=== PATIENT | male | born 1940 | race Caucasian/White ===

== ENCOUNTER 2017-11-26 15:42 | Inpatient (IN) | payer OTHER ==
[2017-11-26] MEDS ORDERED: ASPIRIN 81 MG CHEWABLE TAB PO ONE (16:05)
[2017-11-26 16:10] LABS: PLATELET COUNT 262 10^3/uL (150-400)
--- NOTE | 2017-11-26 16:24 | CPEKG ---
Heart Rate: 87 RR Interval: 690 P-R Interval: 236 QRSD Interval: 92 QT Interval: 384 QTC Interval: 462 P [place]: 56 QRS [place]: -42 T Wave [place]: 90 EKG Severity - ABNORMAL ECG - EKG Impression: SINUS RHYTHM EKG Impression: FIRST DEGREE AV BLOCK EKG Impression: INFERIOR INFARCT, AGE INDETERMINATE EKG Impression: LATERAL LEADS ARE ALSO INVOLVED Electronically Signed By: Maribell Us 26-Nov-2017 21:01:26
--- NOTE | 2017-11-26 16:53 | EDPHY ---
H & P Stated Complaint: cp, elevated trop Time Seen by Provider: 11/26/17 16:05 HPI/ROS: CHIEF COMPLAINT: Abnormal troponin HISTORY OF PRESENT ILLNESS: This is a 77-year-old male who was advised to come to the emergency department by his physician after he was discovered to have an elevated troponin, 0.293. He saw his physician on November 21, concerned about worsening chest pain with exertion. He has been experiencing some chest tightness for the past few months when walking his dog and this has recently gotten worse. He has continued to feel some fatigue and chest pain with exertion over the past week. He had 1 episode 3 nights ago when he felt diaphoretic and lightheaded. This has not recurred. He is not currently experiencing chest pain or shortness of breath. He takes Eliquis for what he tells me are PVCs, but there is a question of paroxysmal atrial fibrillation. REVIEW OF SYSTEMS: A ten point review of systems was performed and is negative with the exception of the items mentioned in the HPI. Past medical history: 1. 4 cm ascending aortic aneurysm 2. Anxiety 3. Hypothyroidism Past surgical history: 1. Hernia repair 2. Right shoulder rotator cuff repair next 3. Right knee arthroscopy 4. Cervical diskectomy next 5. Right eye cataract repair 5. Bunionectomy Family history: Son with hypertrophic cardiomyopathy who underwent cardiac transplant. Social history: He lives with his , who has Alzheimer's. He does not use tobacco or alcohol. His son accompanies him tonight. His son is a director cost in [place]. General Appearance: Alert. Vital signs reviewed. Blood pressure 178/92 at triage. Eyes: Pupils equal and round, no conjunctival injection, no discharge. Anicteric. ENT, Mouth: Mucous membranes are moist, no oropharyngeal erythema or edema. Neck: No lymphadenopathy, supple. No JVD. Respiratory: Lungs are clear to auscultation; no wheezes, rales, or rhonchi. Cardiovascular: Regular rate and rhythm; no murmur, rub, or gallop. Gastrointestinal: Abdomen is soft and nontender, no masses or organomegaly, bowel sounds normal. Skin: Warm and dry, no rashes on exposed skin, normal color. Back: Nontender to palpation over the thoracolumbar spine. No CVAT. Extremities: No lower extremity edema, no calf tenderness or swelling. Neurological: Alert and oriented. Moving all four extremities easily and equally. Psychiatric: Normal affect. - Personal History Current Tetanus/Diphtheria Vaccine: Yes Current Tetanus Diphtheria and Acellular Pertussis (TDAP): Yes Tetanus Vaccine Date: < 10 YEARS - Medical/Surgical History Hx Asthma: No Hx Chronic Respiratory Disease: No Hx Diabetes: No Hx Cardiac Disease: Yes Hx Renal Disease: No Hx Cirrhosis: No Hx Alcoholism: No Hx HIV/AIDS: No Hx Splenectomy or Spleen Trauma: No Other PMH: ACENDING AORTIC ANEURYSM 4 CM,hernia repair, r eye cataract surg.+ corneal removal, r shoulder rotator cuff surgery, r knee arthoscophy, cervical disectomy - Social History Smoking Status: Former smoker Constitutional: Initial Vital Signs Temperature (C) 36.6 C 11/26/17 15:50 Heart Rate 84 11/26/17 15:50 Respiratory Rate 16 11/26/17 15:50 Blood Pressure 178/92 H 11/26/17 15:50 O2 Sat (%) 94 11/26/17 15:50 O2 Delivery Mode Room Air Allergies/Adverse Reactions: No Known Allergies Allergy (Unverified 11/26/17 15:47) Home Medications: Medication Instructions Recorded Aspirin [Aspirin 81mg (*)] 81 mg PO DAILY 04/02/16 Cetirizine [ZyrTEC 10 mg (*)] 10 mg PO Q2D 04/02/16 Herbals/Supplements -Info Only 1 ea PO DAILY 04/02/16 Levothyroxine [Synthroid 88 mcg 88 mcg PO DAILY06 04/02/16 (*)] Apixaban [Eliquis] 5 mg PO BID 11/26/17 Escitalopram Oxalate [Lexapro] 10 mg PO DAILY 11/26/17 Medical Decision Making - Diagnostics EKG Interpretation: 12 lead EKG is interpreted in Trace master View by emergency department physician. There are inferior Q-waves and some ST depression. This is changed compared to an EKG from 2016. Imaging: I viewed and interpreted images myself ED Course/Re-evaluation: Patient with elevated troponin and EKG changes, presumably he experienced a myocardial infarction sometime during the past week. He is currently chest pain -free. Took a baby aspirin this morning and was given full-dose aspirin on arrival in the emergency department. He is taking Eliquis. The repeat troponin is 0.09. Electrolytes and CBC are normal. He has had no chest pain while in the department. I reviewed his chest x-ray. It shows some atelectasis or basilar scarring, no acute pulmonary disease. I spoke with Dr. Marc Appiah of Cardiology. Patient is being admitted to PCU to the hospitalist service. Differential Diagnosis: Chest pain including but not limited to myocardial ischemia, pulmonary embolus, chest wall pain, pleural inflammation and pulmonary infectious causes. - Data Points Laboratory Results: Laboratory Results 11/27/17 04:06 11/27/17 04:06 11/27/17 11/27/17 04:06 04:06 WBC 6.72 10^3/uL 10^3/uL (3.80-9.50) RBC 5.14 10^6/uL 10^6/uL (4.40-6.38) Hgb 15.6 g/dL g/dL (13.7-17.5) Hct 44.9 % % (40.0-51.0) MCV 87.4 fL fL (81.5-99.8) MCH 30.4 pg pg (27.9-34.1) MCHC 34.7 g/dL g/dL (32.4-36.7) RDW 12.4 % % (11.5-15.2) Plt Count 209 10^3/uL D 10^3/uL (150-400) MPV 9.7 fL fL (8.7-11.7) Neut % (Auto) 60.1 % % (39.3-74.2) Lymph % (Auto) 23.8 % % (15.0-45.0) [place] % (Auto) 10.6 % % (4.5-13.0) Eos % (Auto) 4.3 % % (0.6-7.6) Baso % (Auto) 0.9 % % (0.3-1.7) Nucleat RBC Rel Count 0.0 % % (0.0-0.2) Absolute Neuts (auto) 4.04 10^3/uL 10^3/uL (1.70-6.50) Absolute Lymphs (auto) 1.60 10^3/uL 10^3/uL (1.00-3.00) Absolute Monos (auto) 0.71 10^3/uL 10^3/uL (0.30-0.80) Absolute Eos (auto) 0.29 10^3/uL 10^3/uL (0.03-0.40) Absolute Basos (auto) 0.06 10^3/uL 10^3/uL (0.02-0.10) Absolute Nucleated RBC 0.00 10^3/uL 10^3/uL (0-0.01) Immature Gran % 0.3 % % (0.0-1.1) Immature Gran # 0.02 10^3/uL 10^3/uL (0.00-0.10) Sodium 144 mEq/L mEq/L (135-145) Potassium 3.8 mEq/L mEq/L (3.5-5.2) Chloride 110 mEq/L mEq/L (97-110) Carbon Dioxide 25 mEq/l mEq/l (22-31) Anion Gap 9 mEq/L mEq/L (8-16) BUN 15 mg/dL mg/dL (7-23) Creatinine 1.0 mg/dL mg/dL (0.7-1.3) Estimated GFR > 60 Glucose 92 mg/dL mg/dL (70-100) Calcium 8.6 mg/dL mg/dL (8.5-10.4) Creatine Kinase 42 IU/L IU/L (0-224) Troponin I 0.118 ng/mL H ng/mL (0.000-0.034) Triglycerides 112 mg/dL mg/dL (40-150) Cholesterol 161 mg/dL mg/dL (140-220) Cholesterol Risk Factr 1.0 (0.2-1.0) LDL Cholesterol, Calc 102 mg/dL H mg/dL (80-100) LDL Risk Factor 1.0 (0.2-1.0) VLDL Cholesterol 22 mg/dL mg/dL (8-25) Non-HDL Cholesterol 124 mg/dL mg/dL (90-129) HDL Cholesterol 37 mg/dL L mg/dL (40-65) LDL/HDL Ratio 2.76 RATIO RATIO (1.00-3.64) Cholesterol/HDL Ratio 4.35 RATIO RATIO (1.00-4.97) Medications Given: Apixaban (Eliquis) 5 mg PO BID [facility] Stop: 05/25/18 20:59 Last Admin: 11/27/17 09:56 Dose: Not Given Aspirin (Aspirin) 81 mg PO DAILY [facility] Stop: 05/26/18 08:59 Last Admin: 11/27/17 10:22 Dose: 81 mg Escitalopram Oxalate (Lexapro) 10 mg PO DAILY [facility] Stop: 05/26/18 08:59 Last Admin: 11/27/17 10:18 Dose: 10 mg Levothyroxine Sodium (Synthroid) 88 mcg PO DAILY06 [facility] Stop: 05/26/18 05:59 Last Admin: 11/27/17 06:59 Dose: 88 mcg Discontinued Medications Aspirin (Aspirin) 324 mg PO EDNOW ONE Stop: 11/26/17 16:06 Last Admin: 11/26/17 16:36 Dose: 324 mg Departure - Departure Disposition: [facility] Inpatient Acute Clinical Impression: Myocardial infarction Qualifiers: Myocardial infarction type: non-ST elevation myocardial infarction Qualified Code(s): I21.4 - Non-ST elevation (NSTEMI) myocardial infarction Condition: Good
--- NOTE | 2017-11-26 17:53 | PDGENHP ---
History and Physical History and Physical: Chief complaint: Exertional chest pain History of present illness: The patient is a 77-year-old male with a history of paroxysmal atrial fibrillation who experienced chest pain with exertion earlier this week. His son, who is a returned goods repairer, recommended that the patient be evaluated by his physician. Patient was found to have an elevated troponin and was subsequently recommended to come to the ED. Patient admits that his chest pain with exertion initially developed last fall, but has progressively worsened. Chest pain is described as tightness across bilateral chest. It is associated with shortness of breath. It occurs when he walks up an incline, while walking his dog. He has noticed it while climbing a ladder at his home. In the last 3-4 weeks, he has "not felt right" with associated symptoms of fatigue and malaise. Two nights ago, he had a sensation of lightheadedness and feeling flushed when he was lying in bed. Symptoms are better when he rests. Symptoms are worse when he is active, for example, ascending stairs. He has not tried taking vusf-jtd-zxyibuk medication for this. 1.5 years ago, patient had a treadmill stress test which was normal. Past medical history: Ascending aortic aneurysm, PAF, Hypothyroidism, lumbar spinal stenosis, tinnitus. Past surgical history: Right knee arthroscopy, C-spine surgery, hernia surgery , orchiectomy, tonsillectomy, bunionectomy, right rotator cuff surgery. Medications: Eliquis 5 mg orally twice a day, Lexapro 10 mg daily, levothyroxine 88 mcg daily, aspirin 81 mg daily, vitamin supplements, Zyrtec 10 mg orally daily. Allergies: No known allergies Social history: Patient lives with his who was recently diagnosed with Alzheimer dementia. He does not drink alcohol. He has a remote history of smoking for 15 years-1-2 packs a day when he was his 20s. Family history: Father from CHF at the age of 56. Sister had ovarian cancer and breast cancer. Son had HOCM and is currently living with a cardiac transplant. Review of systems: 10 point review of systems was conducted and is negative except per HPI PCP: Dr. Sanjay Obregon. Physical exam: Vitals: Reviewed Gen: elderly M, lying in bed, A&Ox3, in NAD. HEENT: mucous membranes dry. EOMI. Neck: no carotid bruits b/l. CV: RRR no MRG. Resp: CTAB no RRW. Abd: SND. nontender. MSK: nl muscle tone/bulk. Psych: approp mood/affect. Heme/lymph: no periph edema. Skin: no pallor. Labs: WBC 7.5 hemoglobin 49.7 platelets 262. Sodium 140 to potassium 4.2 chloride 105 CO2 27 BUN 15 creatinine 1.2 glucose 90 to calcium 9.4. Troponin 0.29, 0.093. Other Data: EKG: Personally interpreted-sinus rhythm heart rate 87, ischemia in lateral leads, old inferior infarct. Prior EKG from summer 2016-personally interpreted- age-indeterminate inferior infarct. Treadmill stress test report from 2016 -normal. Impression and plan: Stable angina pectoris PAF Ascending aortic aneurysm L spine stenosis Hypothyroid Anxiety -Consulted Cardiology- discussed case w/ Dr. Appiah, who will see pt tomorrow. Recs appreciated. -NPO in case of angiogram. -Continue cardiac meds. -Check lipid panel, monitor labs. -prn analgesics - morphine, NTG. -Cardiac monitoring. -PT/OT. -VTE ppx - on Eliquis. Code status: full.
[2017-11-26] MEDS ORDERED: PROMETHAZINE HCL 25 MG/ML INJ IVP PRN (19:40)
[2017-11-26] MEDS ORDERED: ALBUTEROL 3 ML DEYVIAL IH PRN (19:40)
[2017-11-26] MEDS ORDERED: ACETAMINOPHEN 325 MG TAB PO PRN (19:40)
[2017-11-26] MEDS: APIXABAN 5 MG TAB PO SCH (21:51)
[2017-11-27] MEDS ORDERED: NITROGLYCERIN 0.4 MG BTL SL PRN ×2 (02:59→10:24)
[2017-11-27 04:30] LABS: PLATELET COUNT 209 10^3/uL (150-400)
[2017-11-27 04:47] LABS: CREATINE KINASE 42 IU/L (0-224)
[2017-11-27] MEDS: LEVOTHYROXINE 88 MCG TAB PO SCH (06:59)
--- NOTE | 2017-11-27 09:23 | HOSPPROG ---
Hospitalist Progress Note Assessment/Plan: Chest pain with exertion - Concerning for stable angina. Trop elevated. EKG reviewed, ST dep in lat leads. Discussed with Dr. Appiah. -NPO at midnight for cath in am -cont ASA, hold eliquis -LDL 102, likely warrants statin, will await cath findings Paroxysmal A fib - Rate controlled. Hold Eliquis for cath in am. Ascending aortic aneurysm - stable over several yrs at 4 cm -cont outpt surveillance Hypothyroid - cont levothyroxine Anxiety - stable Full code Dispo - change to inpt for ongoing cardiac evaluation Subjective: Pt feels well. He is chest pain free at rest. No SOB. Took his home eliquis this am. No palpitations. Objective: Vital Signs Temp Pulse Resp BP Pulse Ox 36.8 C 60 18 138/74 H 92 11/27/17 08:13 11/27/17 08:13 11/27/17 08:13 11/27/17 08:13 11/27/17 08:13 Laboratory Results 11/27/17 04:06 11/27/17 04:06 11/26/17 11/27/17 11/28/17 05:59 05:59 05:59 Intake Total 250 Balance 250 - Physical Exam Constitutional: no apparent distress Eyes: PERRL Ears, Nose, Mouth, Throat: moist mucous membranes Cardiovascular: regular rate and rhythym Respiratory: no respiratory distress, clear to auscultation Gastrointestinal: normoactive bowel sounds, soft, non-tender abdomen Skin: warm Musculoskeletal: full muscle strength Neurologic: AAOx3 Psychiatric: interacting appropriately ICD10 Worksheet Patient Problems: Problems Problem Status Onset Myocardial infarction Acute Chest pain Acute
[2017-11-27] MEDS: APIXABAN 5 MG TAB PO SCH (09:56)
[2017-11-27] MEDS: ESCITALOPRAM OXALATE 10 MG TAB PO SCH (10:18)
[2017-11-27] MEDS: ASPIRIN 81 MG CHEWABLE TAB PO SCH (10:22)
[2017-11-27] MEDS ORDERED: ACETAMINOPHEN 325 MG TAB PO PRN (10:24)
[2017-11-27] MEDS ORDERED: TEMAZEPAM 15 MG CAP PO PRN (10:24)
--- NOTE | 2017-11-27 10:30 | GCON ---
[f rep st] CONSULTATION CARDIAC CONSULTATION DATE OF CONSULTATION: 11/27/2017 REASON: Increasing shortness of breath, chest pain, abnormal troponins. HISTORY OF PRESENT ILLNESS: This is a very pleasant 77-year-old gentleman who is seen with his and his son, who is a district plant engineer in [place], who has had a history of chest pain, in 2016 had an ad mission and a workup with a normal troponin. There is a history of possible paroxysmal atrial fibril lation. He was placed on Eliquis, has been followed in our office for this. He has had no other sig nificant issues from a cardiac standpoint. Apparently over the last few months he has been getting s ome diffuse dyspnea on exertion, which is recently worsened with some chest discomfort. He was seen by his PCP. A troponin last week was indeterminate at 0.29. He was told to come to the emergency ro om, showed up yesterday without complaints. His troponin was 0.09. His EKG shows sinus rhythm with inferior Q-waves and mild ST depression. Overnight he has been very stable without any issues. A deja ng discussion with he and his family today regarding his symptoms. We discussed the noninvasive vers us invasive approach. They wished to proceed in an invasive manner. He did have his Eliquis taken t cynthia. He is not having any ongoing issues. Because of the nonemergent nature of his cardiac cathete rization, he has agreed to stay today. We will hold his Eliquis and have the procedure performed gill orrow. If any symptoms were dictated, this can be accelerated to be done today. They are comfortabl e with this. He is not in atrial fibrillation at this time. He has no syncope or other issues. He has never been treated for hypertension or hyperlipidemia. He is a nonsmoker, nondiabetic. There is a family history of hypertrophic cardiomyopathy in a son, but apparently it was the only case noted in their family history. PAST MEDICAL HISTORY: Includes a history of ascending aortic aneurysm, paroxysmal atrial fibrillatio n, hypothyroidism, spinal stenosis. PAST SURGICAL HISTORY: Knee surgery, spine surgery, hernia surgery. MEDICINES: Now include Eliquis, Lexapro, levothyroxine, aspirin. ALLERGIES: No known allergies. SOCIAL HISTORY: He is active. 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 He does not have cigarette smoking or alcohol use. FAMILY HISTORY: Significant for a son who had HCM with a cardiac transplant. REVIEW OF SYSTEMS: Negative except for that mentioned in the HPI. PHYSICAL EXAMINATION: VITAL SIGNS: Blood pressure is 130/72, heart rate in the 70s and sinus, he is afebrile. GENERAL: No acute distress. Alert and reactive x3. HEENT: Moist oropharynx. BACK/CVA /CHEST WALL: Without palpable tenderness. LUNGS: Clear to auscultation. CARDIOVASCULAR: Regular rate and rhythm without systolic murmur. No JVP or . ABDOMEN: Soft, nontender. MUSCULOS KELETAL: Showed palpable pulses in the distal area with strong femoral pulses and no bruits. LABORATORY DATA: White count is 6, hemoglobin of 15. Troponins 0.09 and 0.11. Potassium 3.8, creat inine 1.0. LDL 102, HDL 37. ASSESSMENT: 1. Dyspnea on exertion. Somewhat chronic but worsening with chest pain. The patient has had indete rminate troponins last week and again today. He is not having any symptoms at this time. He has agr eed to cardiac catheterization. Because he took his Eliquis today, this will be held for 24 hours be fore proceeding with cardiac catheterization. He has no acute ongoing symptoms at this time, but sarabjit l be monitored in the hospital. 2. History of paroxysmal atrial fibrillation, on long-term Eliquis. Patient is in normal sinus rhyt hm at this time. He has no contraindications to the Eliquis. 3. History of abdominal aneurysm, followed in our office. 4. History of aortic aneurysm. Echo in 2016 had measured it at 4.0 cm, 4.15 at the sinus of [place] a. He was previously followed by Cardiothoracic Surgery. 5. History of hypothyroid, on Synthroid replacement. PLAN: Continue current management. Will prepare for cardiac catheterization tomorrow after holding Eliquis; however, if symptoms dictate this can be done today. This all discussed with the family and the patient. Questions were answered. They agree with this plan. /[id number]/MODL
--- NOTE | 2017-11-27 11:46 | PDMN ---
Medical Necessity Medical necessity: C/M review: est. > 2 MN LOS for eval and TX of acute and persistent chest pain with exertion concerning for stable angina requiring planned 11/28/2017 cardiac catheterization as patient took his home Eliquis [id number], ongoing hold Eliquis, cardiac monitoring, pulse oximetry, comorbid paroxysmal atrial fibrillation, ascending aortic aneurysm, hypothyroidism, anxiety per 11/27/2017 Hospitalist progress note.
--- NOTE | 2017-11-27 14:06 | ASMTCMCOM ---
CM Note CM Note Notes: 77yr old male admitted for CP, GA. He has a hx of Afib, AAA, Hypothyroid, Spinal Stenosis, Anxiety. Patient lives with his who has an Alzheimer's dx. Patient to have a cardiac cath on Tuesday. CM not anticipating that patient will have discharge needs. Date Signed: 11/27/2017 02:06 PM Electronically Signed By:Rafaela Arriola LCSW
[2017-11-28 04:07] LABS: PLATELET COUNT 209 10^3/uL (150-400)
[2017-11-28 05:03] LABS: INR 1.05 (0.83-1.16); PROTIME(PATIENT) 13.9 SEC (12.0-15.0)
[2017-11-28] MEDS ORDERED: diphenhydrAMINE 25 MG CAP PO ONE ×2 (06:00→09:14)
[2017-11-28] MEDS ORDERED: NS 1,000 ML IV ONE (06:00)
[2017-11-28] MEDS ORDERED: ASPIRIN EC 325 MG TAB PO ONE ×2 (06:00→09:14)
[2017-11-28] MEDS ORDERED: FAMOTIDINE 20 MG TAB PO ONE ×2 (06:00→09:14)
[2017-11-28] MEDS ORDERED: DIAZEPAM 5 MG TAB PO ONE ×2 (06:00→09:14)
[2017-11-28] MEDS: LEVOTHYROXINE 88 MCG TAB PO SCH (07:01)
--- NOTE | 2017-11-28 08:56 | CPEKG ---
Heart Rate: 60 RR Interval: 1000 P-R Interval: 240 QRSD Interval: 92 QT Interval: 420 QTC Interval: 420 P [place]: 48 QRS [place]: -50 T Wave [place]: 55 EKG Severity - ABNORMAL ECG - EKG Impression: SINUS RHYTHM EKG Impression: FIRST DEGREE AV BLOCK EKG Impression: INFERIOR INFARCT, AGE INDETERMINATE Electronically Signed By: Ananth Queen 28-Nov-2017 09:55:06
--- NOTE | 2017-11-28 09:07 | HOSPPROG ---
Hospitalist Progress Note Assessment/Plan: Chest pain with exertion - Concerning for stable angina. Trop elevated. EKG reviewed, ST dep in lat leads. Discussed with Dr. Queen. -NPO today for angiogram -cont ASA, hold eliquis for cath -LDL 102, likely warrants statin, will await cath findings Paroxysmal A fib - Rate controlled. Hold Eliquis for cath. Ascending aortic aneurysm - stable over several yrs at 4 cm -cont outpt surveillance Hypothyroid - cont levothyroxine Anxiety - stable Full code Dispo - cont inpt for ongoing cardiac evaluation Subjective: Pt feels fine. No CP or SOB at rest. Awaiting angiogram. Objective: Vital Signs Temp Pulse Resp BP Pulse Ox 36.3 C 60 12 123/71 H 93 11/28/17 07:15 11/28/17 08:12 11/28/17 07:15 11/28/17 08:12 11/28/17 07:15 Laboratory Results 11/28/17 03:50 11/28/17 03:50 11/27/17 11/28/17 11/29/17 05:59 05:59 05:59 Intake Total 300 Balance 300 PT 13.9 SEC (12.0-15.0) 11/28/17 03:50 INR 1.05 (0.83-1.16) 11/28/17 03:50 - Physical Exam Constitutional: no apparent distress Eyes: PERRL Ears, Nose, Mouth, Throat: moist mucous membranes Cardiovascular: regular rate and rhythym Respiratory: no respiratory distress, clear to auscultation Gastrointestinal: normoactive bowel sounds, soft, non-tender abdomen Skin: warm Musculoskeletal: full muscle strength Neurologic: AAOx3 Psychiatric: interacting appropriately ICD10 Worksheet Patient Problems: Problems Problem Status Onset Myocardial infarction Acute Chest pain Acute
[2017-11-28] MEDS ORDERED: ACETAMINOPHEN 325 MG TAB PO PRN (09:14)
[2017-11-28] MEDS ORDERED: NITROGLYCERIN 0.4 MG BTL SL PRN (09:14)
[2017-11-28] MEDS ORDERED: TEMAZEPAM 15 MG CAP PO PRN (09:14)
[2017-11-28] MEDS ORDERED: NS 1,000 ML IV SCH (09:15)
[2017-11-28] MEDS ORDERED: IOPAMIDOL (ISOVUE-370) 150 ML BTL IV ONE ×2 (09:34→11:09)
[2017-11-28] MEDS ORDERED: LIDOCAINE 1% 300 MG/30 ML SDV ONE (09:34)
[2017-11-28] MEDS ORDERED: fentaNYL 100 MCG/2 ML INJ ONE (09:34)
[2017-11-28] MEDS ORDERED: MIDAZOLAM 2 MG/2 ML VIAL ONE ×2 (09:34→11:28)
--- NOTE | 2017-11-28 09:54 | PDCARPN ---
Cardiology Progress Note Chief Complaint: Chest pains (previously noted) Assessment/Plan: Assessment: Patient is a 77 y/o male with history of hypothyroidism, pAF (on Eliquis), and ascending aortic aneurysm, who presented to [facility] after labs drawn by PCP with notable elevation. Patient was seen last week, and PCP ordered cardiac biomarker. Elevation was noted, but delay in relay of information to the patient occurred. Patient was admitted over the weekend with intent for angiography, but given on going use of Eliquis, angiogram was postponed until today. Risks and benefits of the procedure (angiogram) were discussed with the patient. At present, the patient is pain free. Elevation in Troponin continues to be noted. No dynamic changes to the ECG are currently noted. Plan: (1) Angiography today - risks and benefits were discussed - consents have been signed Subjective: No cardiovascular complaints Reviewed/Discussed With: family, hospitalist, multidisciplinary team Objective: Vital Signs (8 Hrs) Temp Pulse Pulse Pulse Pulse Resp BP 11/28/17 08:12 68 78 60 11/28/17 07:15 36.3 C 80 12 124/82 H 11/28/17 04:00 36.6 C 82 16 108/91 H BP BP BP Pulse Ox 11/28/17 08:12 113/66 110/77 123/71 H 11/28/17 07:15 93 11/28/17 04:00 94 Intake/Output (24 Hrs) 11/27/17 11/28/17 11/29/17 05:59 05:59 05:59 Intake Total 300 Balance 300 Intake: Oral (ml) 300 Other: Intake Quantity Yes Sufficient Number of Voids Toilet 2 Result Diagrams: 11/28/17 03:50 11/28/17 03:50 EKG: normal sinus rhythm - Physical Exam Constitutional: WDWN, healthy appearing, no apparent distress Eyes: PERRL, EOMI Ears, Nose, Mouth, Throat: moist mucous membranes Cardiovascular: regular rate and rhythm, no murmurs, pulses symmetric bilat Peripheral Pulses: 2+: dorsalis-pedis (R), dorsalis-pedis (L) Respiratory: clear to auscultate bilat, no crackles, no wheezes Gastrointestinal: normoactive bowel sounds Skin: no rashes, no edema Musculoskeletal: no muscular tenderness Neurologic: AAOx3, CN II-XII grossly intact Psychiatric: cooperative, interactive, following commands ICD10 Worksheet Patient Problems: Problems Problem Status Onset Myocardial infarction Acute Chest pain Acute
--- NOTE | 2017-11-28 09:56 | PDPROPOC ---
Sedation Plan of Care Sedation Plan of Care: vital signs stable, mental status noted, patient educated of risks, benefits, alternatives, patient can tolerate sedation ASA Classification: ASA 3 Planned drugs: fentanyl, midazolam Mallampati Score: Class 2 Mallampati Reference Image: Patient passed 3-3-2 rule?: Yes
[2017-11-28] MEDS: ASPIRIN 81 MG CHEWABLE TAB PO SCH (10:01)
[2017-11-28] MEDS ORDERED: BIVALIRUDIN 250 MG/5 ML VIAL IV ONE (10:49)
[2017-11-28] MEDS ORDERED: NITROGLYCERIN 1,500 MCG/15 ML VIAL MISC ONE (11:07)
[2017-11-28] MEDS ORDERED: CLOPIDOGREL BISULFATE 75 MG TAB ONE (11:40)
--- NOTE | 2017-11-28 11:54 | PDDXCAT ---
Diagnostic Cath Note - . Date: 11/28/17 Report Developer: Bernice Indication: CCC Class III and IV angina on medical treatment - Procedure Access: right groin Procedure: left heart catheterization, coronary angiography, left ventriculogram - Materials Left Heart Cath size: 6F Left Heart Cath materials: standard multipack (JL4, JR4, pigtail) - Findings-Left Heart Catheterization LM: Long vessel with bifurcation into the LAD and LCX. No luminal irregularities were noted. LAD: Medium diameter vessel with three diagonals - all equal in magnitude to take off from LAD. Just proximal to second diagonal, there is a critical lesion (85%) with two further lesions between D2/3 (60%) and distal to D3 (30%) LCX: Medium diameter vessel with early OM (versus ramus) and a second OM, both equal in magnitude to take off from the LCX. There were 10% luminal irregularities to the LCX system. RCA: Dominant vessel with three lesions (prox, mid, and distal) with less than 20% luminal irregularities to each. PDA and CHITO were supplied by this system. EDP: 10 mm Hg LVEF: 65% Wall motion: Grossly normal wall motion. There was inferior hypokinesis, but this is likely secondary to the presence of the catheter, not ischaemic induced. Complications: none Estimated blood loss: <50ml Assessment: 77 y/o male with classic anginal symptoms and a leak in troponin noted. 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 Normal LVEF was noted. No other critical lesions were appreciated. Plan: Dr. Royce Crespo to assess and perform PCI to the aforementioned lesion Intervention: mid LAD critical lesion Patient Problems: Problems Problem Status Onset Myocardial infarction Acute Chest pain Acute
[2017-11-28] MEDS ORDERED: ATROPINE SULFATE 1 MG/10 ML SYR IVP PRN (12:11)
[2017-11-28] MEDS ORDERED: CLOPIDOGREL BISULFATE 75 MG TAB PO ONE (12:11)
--- NOTE | 2017-11-28 13:10 | CPIP ---
[f rep st] INVASIVE CARDIAC PROCEDURE DATE OF PROCEDURE: 11/28/2017 PROCEDURE: 1. Coronary angiography. 2. Stenting of left anterior descending coronary artery. 3. Angioplasty of 1st diagonal artery. INDICATION: Acute coronary syndrome with elevated troponin. DESCRIPTION OF PROCEDURE: Access And Coronary Angiography: Access and coronary angiography were per formed by Dr. Ananth Queen. Coronary Angiography: Notable for single-vessel coronary artery disease involving the left anterior descending coronary artery. Percutaneous coronary intervention of the left anterior descending coronary artery: A 7-Cambodian EBU 3 .5 catheter was advanced to the left main coronary artery and images obtained. Angiography demonstra anai an 80% stenosis in the proximal left anterior descending coronary artery just prior to the takeof f of the first diagonal artery. In the mid vessel there is a single discrete 60% to 70% stenosis pre sent and in the distal vessel, there was a segmental 30% stenosis present. A Luge wire was placed in the distal vessel and position verified by angiography. A 2.5 x 15 Emerge balloon was used to pre-d ilate the left anterior descending coronary artery. Followup angiography demonstrated CALE-3 flow wi th residual stenosis. A 2.5 x 32 synergy drug-eluting stent was then placed in the left anterior mila cending coronary artery and deployed at 15 atmospheres. Followup angiography demonstrated CALE-3 kiya w. No residual stenosis involving the left anterior descending coronary artery. The patient did, ho wever, have an ostial 99% stenosis in the first diagonal artery with CALE-3 flow. The first diagonal artery was a relatively sizable blood vessel. It was decided to perform angioplasty of the first di agonal artery. A Prowater wire was placed in the first diagonal artery and position verified by chaz ography. A 1.25 x 15 Emerge balloon was used to pre-dilate the lesion. Followup angiography demonst rated significant residual stenosis and CALE-3 flow. A 2.0 x 15 Emerge balloon was placed in the mansi gonal artery, a 2.5 x 15 balloon was placed in the left anterior descending coronary artery, and the 2 balloons inflated via kissing technique. Followup angiography demonstrated no residual stenosis in the left anterior descending coronary artery with CALE-3 flow. The first diagonal artery had an ost ial 25% stenosis present with CALE-3 flow. COMPLICATIONS: None. CONCLUSIONS: 1. Single-vessel coronary artery disease. 2. Normal left ventricular systolic function. 3. Status post successful stenting of left anterior descending coronary artery with Synergy drug-fabiolau nasg stent. /[id number]/MODL
--- NOTE | 2017-11-28 15:14 | CPEKG ---
Heart Rate: 61 RR Interval: 984 P-R Interval: 252 QRSD Interval: 90 QT Interval: 428 QTC Interval: 431 P [place]: 62 QRS [place]: -38 T Wave [place]: 52 EKG Severity - ABNORMAL ECG - EKG Impression: SINUS RHYTHM EKG Impression: FIRST DEGREE AV BLOCK EKG Impression: PROBABLE INFERIOR INFARCT, AGE INDETERMINATE Electronically Signed By: Annath Queen 29-Nov-2017 11:09:14
--- NOTE | 2017-11-28 15:18 | ECHO ---
[email or web address] [address] [address] Main: [phone] Fax: Transthoracic Echocardiogram Name: DONNIE DAY MR#: [id number] Study Date: 11/27/2017 Study Time: 07:39 AM Date of : 1940 Age: 77 year(s) Height: 180.3 cm (71 in.) Weight: 73.03 kg (161 lb.) BSA: 1.92 m2 Gender: Male Examination: Echo Indication: Angina/dyspnea on exertion Image Quality: Contrast: Requested by: Tonie Kirk BP: 108 mmHg/65 mmHg Heart Rate: Rhythm: Indication: Angina/dyspnea on exertion Procedure Staff Data Integrity Analyst: Heather Grimes RDCS Reading Physician: Ananth Queen MD Requesting Provider: Conclusions: Normal size left ventricle. No LV hypertrophy. Normal global systolic LV function. The ejection fraction is estimated to be 60-65 %. No regional wall motion abnormality. Diastolic dysfunction is present. . Normal size right ventricle. The left atrium is mildly dilated. Mild mitral valve regurgitation is present. The aortic valve is normal in appearance and function. Mild tricuspid regurgitation is present. Trivial pulmonic valve regurgitation. Borderline dilated ascending aorta.. Measurements: Chambers Valvular Assessment AV/MV Valvular Assessment TV/PV Normal Normal Normal Name Value Range Name Value Range Name Value Range IVSd (2D): 0.8 cm (0.6 cm-1.1 AV meanP mmHg ( - ) TR Vmax: 2.35 mm/s ( - ) cm) TR PGmax: 22 mmHg ( - ) LVDd (2D): 4.4 cm (4.2 cm-5.9 syst. PAP: 27 mmHg ( - ) cm) LVDs (2D): 2.8 cm (2.1 cm-4 cm) LVPWd (2D): 0.7 cm (0.6 cm-1 cm) LVEF (MOD4): 67 % (>=55 %) EF Range: 60-65 % Continued Measurements: Patient: DONNIE DAY Study Date: 11/27/2017 Page 1 of 2 07:39 AM Chambers Valvular Assessment TV/PV Name Value Name Value LADs: 4.3 cm CVP (est.): 5 mmHg LADs Lon.2 cm LA Area: 17.1 cm2 Additional Vessels Name Value Ao Ascendin.2 cm Findings: Left Ventricle: Normal size left ventricle. No LV hypertrophy. Normal global systolic LV function. The ejection fraction is estimated to be 60-65 %. No regional wall motion abnormality. Diastolic dysfunction is present. . Right Ventricle: Normal size right ventricle. Left Atrium: The left atrium is mildly dilated. Right Atrium: The right atrium is normal in size. Mitral Valve: The mitral valve is normal in appearance and function. Mild mitral valve regurgitation is present. Aortic Valve: The aortic valve is normal in appearance and function. Tricuspid Valve: The tricuspid valve is normal in appearance and function. Mild tricuspid regurgitation is present. Pulmonic Valve: Pulmonary valve not well visualized. Trivial pulmonic valve regurgitation. Aorta: Borderline dilated ascending aorta.. The aorta is normal. Pericardium: No pericardial effusion. (No Signature Object) Patient: DONNIE DAY Study Date: 11/27/2017 Page 2 of 2 07:39 AM [id number]
--- NOTE | 2017-11-28 15:22 | ASMTCMCOM ---
CM Note CM Note Notes: Pt had heart cath with stent placement today. Discussed w/RN. Anticipate home independantly tomorrow. CM will follow for any changes/needs. Date Signed: 11/28/2017 03:22 PM Electronically Signed By:Eleonora Marinelli RN
[2017-11-28] MEDS: ESCITALOPRAM OXALATE 10 MG TAB PO SCH (17:21)
[2017-11-28] MEDS ORDERED: SENNOSIDES 1 TAB PO PRN (17:46)
[2017-11-28] MEDS: DOCUSATE SODIUM 100 MG CAP PO SCH ×2 (18:02→18:17)
[2017-11-29 04:18] LABS: PLATELET COUNT 217 10^3/uL (150-400)
[2017-11-29] MEDS: LEVOTHYROXINE 88 MCG TAB PO SCH (06:19)
[2017-11-29 08:08] VITALS: BP 113/68; PULSE 98; RESP 14; TEMP 97.7; O2SAT 94
[2017-11-29] MEDS: DOCUSATE SODIUM 100 MG CAP PO SCH (08:34)
[2017-11-29] MEDS: ESCITALOPRAM OXALATE 10 MG TAB PO SCH (08:35)
[2017-11-29] MEDS ORDERED: CLOPIDOGREL BISULFATE 75 MG TAB PO SCH (09:00)
[2017-11-29] MEDS ORDERED: ASPIRIN EC 325 MG TAB PO SCH (09:00)
--- NOTE | 2017-11-29 09:12 | CPEKG ---
Heart Rate: 79 RR Interval: 759 P-R Interval: 248 QRSD Interval: 94 QT Interval: 392 QTC Interval: 450 P [place]: 44 QRS [place]: -33 T Wave [place]: 49 EKG Severity - ABNORMAL ECG - EKG Impression: SINUS RHYTHM EKG Impression: FIRST DEGREE AV BLOCK EKG Impression: INFERIOR INFARCT, AGE INDETERMINATE Electronically Signed By: Ananth Queen 29-Nov-2017 11:09:18
--- NOTE | 2017-11-29 13:13 | PDCARPN ---
Cardiology Progress Note Chief Complaint: Doing very well this morning Assessment/Plan: Assessment: 11-29-17 No cardiovascular complaints this morning. Minimal groin pains noted. 11-28-17 Patient is a 77 y/o male with history of hypothyroidism, pAF (on Eliquis), and ascending aortic aneurysm, who presented to [facility] after labs drawn by PCP with notable elevation. Patient was seen last week, and PCP ordered cardiac biomarker. Elevation was noted, but delay in relay of information to the patient occurred. Patient was admitted over the weekend with intent for angiography, but given on going use of Eliquis, angiogram was postponed until today. Risks and benefits of the procedure (angiogram) were discussed with the patient. At present, the patient is pain free. Elevation in Troponin continues to be noted. No dynamic changes to the ECG are currently noted. Plan: (1) Outpatient follow up with cardiology in one week (2) Continue therapy no Eliquis for history of atrial fibrillation (3) Newly added Plavix should continue for minimum of one year - would drop the ASA therapy from 325 mg per day to 81 mg per day (4) Would arrange for cardiac rehab given the events that have been noted Subjective: No cardiovascular complaints Reviewed/Discussed With: hospitalist Objective: Vital Signs (8 Hrs) Temp Pulse Resp BP Pulse Ox 11/29/17 08:00 36.5 C 98 14 113/68 94 Intake/Output (24 Hrs) 11/28/17 11/29/17 11/30/17 05:59 05:59 05:59 Intake Total 300 400 Output Total 550 Balance 300 -150 Intake: Oral (ml) 300 400 Output: Urine (ml) 550 Urinal 550 Other: Intake Quantity Yes Sufficient Number of Voids Toilet 2 2 Result Diagrams: 11/29/17 03:48 11/29/17 03:48 EKG: sinus rhythm with first degree AVB - Physical Exam Constitutional: WDWN, healthy appearing, no apparent distress Eyes: PERRL, EOMI Ears, Nose, Mouth, Throat: moist mucous membranes Cardiovascular: regular rate and rhythm, no murmurs Peripheral Pulses: 2+: dorsalis-pedis (R), dorsalis-pedis (L) Respiratory: clear to auscultate bilat, no crackles, no wheezes Gastrointestinal: normoactive bowel sounds Skin: no rashes, no edema Musculoskeletal: no muscular tenderness Neurologic: AAOx3, CN II-XII grossly intact Psychiatric: cooperative, interactive, following commands ICD10 Worksheet Patient Problems: Problems Problem Status Onset Chest pain Acute Myocardial infarction Acute
--- NOTE | 2017-11-29 22:11 | GDS ---
[f rep st] DISCHARGE SUMMARY DISCHARGE DIAGNOSES: 1. Stable angina. 2. Coronary artery disease status post drug-eluting stent to the left anterior descending artery and angioplasty of first diagonal artery. 3. Paroxysmal atrial fibrillation. 4. Chronic anticoagulation with Eliquis. 5. History of ascending aortic aneurysm. 6. Hypothyroidism. CONSULTANTS: Dr. Marc Appiah, Cardiology. IMAGING STUDIES/PROCEDURES: 1. Echocardiogram November 27, 2017, showed normal global systolic left ventricular function with an eje ction fraction of 60% to 65% and no regional wall motion abnormality. Diastolic dysfunction is prese nt. Mild mitral valve regurgitation and mild tricuspid regurgitation. 2. 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 HISTORY: For details, please see history and physical dated November 26, 2017. In brief, the patient is a 77-year-old male with a history of paroxysmal atrial fibrillation on anticoagulation, who presents to the emergency department with classic anginal symptoms. He was admitted to the hospital for furt her evaluation. HOSPITAL COURSE: The patient was admitted to the cardiac telemetry unit. His EKG showed signs of is chemia in his lateral leads with ST depression as well as Q-waves in his inferior leads. His troponi n on arrival was 0.093. This gisella to 0.118. Cardiology consult was obtained. He underwent angiogra m, after holding his Eliquis for over 24 hours. Findings and interventions are described above. The following day, he is symptom free and feels well. I discussed the importance of a daily dual anti-p latelet therapy with the patient for a minimum of 1 year and after that, at the direction of Cardiolo gy. He will also continue anticoagulation. I discussed the triple therapy with Cardiology and he wi ll continue his Eliquis, Plavix and aspirin, though we will keep his aspirin at the 81 mg dose. A fa sting lipid panel was drawn and revealed an LDL cholesterol of 117 with an HDL of 38. Statin therapy is indicated. I discussed potential side effects. We also addressed his daily grapefruit intake. He is advised this could increase his risk of myalgias or side affects given that statins and grapefr uits share the same enzymes for metabolism. This is not an absolute contraindication, though he is c autioned to minimize his grapefruit intake to half a grapefruit a day and watch closely for myalgias or right upper quadrant pain. DISPOSITION: Patient is discharged home in stable condition. FOLLOWUP: 1. Dr. Ananth Crespo, [facility]. 2. Dr. Sanjay Obregon, primary care. DISCHARGE MEDICATIONS: Please see [facility] for completed outpatient medication list. New medication s on discharge include Plavix 75 mg p.o. daily #30 no refills, aspirin 81 mg daily, Crestor 10 mg p.o . daily #30 no refills. He will continue all other outpatient medications as previously prescribed i ncluding Eliquis, Lexapro, levothyroxine, and Zyrtec. /[id number]/MODL
== END 2017-11-29 11:00 | disposition home or self-care (01) | DRG 247 ==
LOC: INTOOBSV 16:55 → F2W 20:08 → OBSVTOIN 11-27 11:32
PROVIDERS: ADMIT Internal Medicine; ATTEND Internal Medicine
PROC: 027034Z Dilation of Coronary Artery, One Artery with Drug-eluting Intraluminal Device, Percutaneous Approach (ICD-10-PCS; principal; 2017-11-28)
PROC: B2151ZZ Fluoroscopy of Left Heart using Low Osmolar Contrast (ICD-10-PCS; 2017-11-28)
PROC: 4A023N7 Measurement of Cardiac Sampling and Pressure, Left Heart, Percutaneous Approach (ICD-10-PCS; 2017-11-28)
PROC: B2111ZZ Fluoroscopy of Multiple Coronary Arteries using Low Osmolar Contrast (ICD-10-PCS; 2017-11-28)
DX: I25.118 Atherosclerotic heart disease of native coronary artery with other forms of angina pectoris (principal); I48.0 Paroxysmal atrial fibrillation; E03.9 Hypothyroidism, unspecified; I71.4 Abdominal aortic aneurysm, without rupture; Z79.01 Long term (current) use of anticoagulants; Z87.891 Personal history of nicotine dependence
CPT/HCPCS: C1725; C1769; C1874; C1887; C9600; G0378; J0461; J0583; J1644; J2250; J3010; Q9967

== ENCOUNTER 2017-11-30 19:01 | Emergency (ER) | payer OTHER ==
[2017-11-30] MEDS ORDERED: NS 500 ML IV ONE (19:09)
[2017-11-30 19:12] VITALS: RESP 16
--- NOTE | 2017-11-30 19:24 | EDPHY ---
H & P Stated Complaint: dizzy, CP, near syncope episode Time Seen by Provider: 11/30/17 19:09 HPI/ROS: CHIEF COMPLAINT: Presyncope HISTORY OF PRESENT ILLNESS: The patient presents to the ED after he developed an episode of presyncope at approximately 5 o'clock today. The patient was recently hospitalized for angina. He underwent an angiogram which demonstrated stenosis of the LAD and a diagonal branch. He underwent stenting of the LAD angioplasty of the diet. Patient was discharged home uneventfully. He had been recovering well prior to the symptoms today. His symptoms lasted for approximately 10-15 minutes. He felt lightheaded and dizzy to might pass out. The patient had a vague episode of chest discomfort which was completely atypical of his anginal symptoms. The patient has been symptom-free since that time. The patient denies any pleuritic chest pain. The patient has a history of stable thoracic aneurysm at 4 cm. He is anticoagulated for any arrhythmia. The patient denies any fever, cough or congestion. He denies additional complaints. REVIEW OF SYSTEMS: A comprehensive 10 point review of systems is otherwise negative aside from elements mentioned in the history of present illness. Source: Patient - Personal History Current Tetanus/Diphtheria Vaccine: Yes Tetanus Vaccine Date: < 10 YEARS - Medical/Surgical History Hx Asthma: No Hx Chronic Respiratory Disease: No Hx Diabetes: No Hx Cardiac Disease: Yes Hx Renal Disease: No Hx Cirrhosis: No Hx Alcoholism: No Hx HIV/AIDS: No Hx Splenectomy or Spleen Trauma: No Other PMH: ACENDING AORTIC ANEURYSM 4 CM,hernia repair, r eye cataract surg.+ corneal removal, r shoulder rotator cuff surgery, r knee arthoscophy, cervical disectomy. DC with 1 stent placed - Social History Smoking Status: Former smoker - Physical Exam Exam: General Appearance: Alert, no distress Eyes: Pupils equal and round no pallor or injection ENT, Mouth: Mucous membranes moist Respiratory: There are no retractions, lungs are clear to auscultation Cardiovascular: Regular rate and rhythm Gastrointestinal: Abdomen is soft and nontender, no masses, bowel sounds normal Neurological: A&O, normal motor function, normal sensory exam, normal cranial nerves Skin: Warm and dry, no rashes Musculoskeletal: Neck is supple nontender Extremities: symmetrical, full range of motion Constitutional: Initial Vital Signs Temperature (C) 36.5 C 11/30/17 19:08 Heart Rate 66 11/30/17 19:08 Respiratory Rate 16 11/30/17 19:08 Blood Pressure 161/79 H 11/30/17 19:08 O2 Sat (%) 93 11/30/17 19:08 O2 Delivery Mode Room Air Allergies/Adverse Reactions: No Known Allergies Allergy (Unverified 11/26/17 15:47) Home Medications: Medication Instructions Recorded Aspirin [Aspirin 81mg (*)] 81 mg PO DAILY 04/02/16 Cetirizine [ZyrTEC 10 mg (*)] 10 mg PO Q2D 04/02/16 Herbals/Supplements -Info Only 1 ea PO DAILY 04/02/16 Levothyroxine [Synthroid 88 mcg 88 mcg PO DAILY06 04/02/16 (*)] Apixaban [Eliquis] 5 mg PO BID 11/26/17 Escitalopram Oxalate [Lexapro 10 10 mg PO DAILY 11/26/17 MG] Clopidogrel Bisulfate [Plavix (*)] 75 mg PO DAILY #30 tab 11/29/17 Rosuvastatin Calcium [Crestor] 10 mg PO DAILY #30 tablet 11/29/17 Medical Decision Making - Diagnostics EKG Interpretation: EKG: Complete interpretation has been separately recorded in the [facility] archive. Summary impression: Sinus rhythm, first-degree AV block, nonspecific ST T wave changes, no acute ischemia noted. Imaging Results: Imaging Impressions Chest X-Ray 11/30/17 19:09 Impression: Interim placement of a left-sided coronary stent, with no evidence of congestive heart failure, new focal infiltrate, or pneumothorax. ED Course/Re-evaluation: The patient presents to the ED after an episode of presyncope lasting 10 min at home. The patient had an atypical episode of chest pain associated with this. He has been symptom-free since that time. The patient arrives to the emergency department in no acute distress with stable vital signs. His EKG demonstrates no arrhythmia. The patient's D-dimer is negative which I feel adequately excludes pulmonary embolism. The patient is currently anticoagulated. The patient's troponin is elevated however it is been decreasing from his discharge troponin. Patient was noted to be hemodynamically stable without evidence of acute anemia or a metabolic derangement. The patient was placed on a septic tank setter for an hour and half in the emergency department without any evidence of arrhythmia. The patient's chest x-ray demonstrates no evidence of obvious disease. The patient's blood work is unremarkable. He was monitor without evidence of arrhythmia for 2 hr. The patient is ambulatory without any symptoms of chest pain or recurrent syncope. At this point time I do feel it is reasonable to discharge the patient home. I have asked the patient to return to the ED for any recurrent symptoms of presyncope, syncope, chest pain or shortness of breath. The patient will follow up with his regular senior editor as scheduled. Differential Diagnosis: Differential diagnosis considered includes arrhythmia, anemia, metabolic abnormality, acute coronary syndrome, renal failure, DVT, pleural effusion - Data Points Laboratory Results: Laboratory Results 11/30/17 19:05 11/30/17 19:05 11/30/17 11/30/17 11/30/17 19: 19: 19:05 WBC 6.61 10^3/uL 10^3/uL (3.80-9.50) RBC 5.28 10^6/uL 10^6/uL (4.40-6.38) Hgb 16.5 g/dL g/dL (13.7-17.5) Hct 45.9 % % (40.0-51.0) MCV 86.9 fL fL (81.5-99.8) MCH 31.3 pg pg (27.9-34.1) MCHC 35.9 g/dL g/dL (32.4-36.7) RDW 12.5 % % (11.5-15.2) Plt Count 265 10^3/uL 10^3/uL (150-400) MPV 9.8 fL fL (8.7-11.7) Neut % (Auto) 58.9 % % (39.3-74.2) Lymph % (Auto) 23.4 % % (15.0-45.0) [place] % (Auto) 13.0 % % (4.5-13.0) Eos % (Auto) 3.9 % % (0.6-7.6) Baso % (Auto) 0.6 % % (0.3-1.7) Nucleat RBC Rel Count 0.0 % % (0.0-0.2) Absolute Neuts (auto) 3.89 10^3/uL 10^3/uL (1.70-6.50) Absolute Lymphs (auto) 1.55 10^3/uL 10^3/uL (1.00-3.00) Absolute Monos (auto) 0.86 10^3/uL H 10^3/uL (0.30-0.80) Absolute Eos (auto) 0.26 10^3/uL 10^3/uL (0.03-0.40) Absolute Basos (auto) 0.04 10^3/uL 10^3/uL (0.02-0.10) Absolute Nucleated RBC 0.00 10^3/uL 10^3/uL (0-0.01) Immature Gran % 0.2 % % (0.0-1.1) Immature Gran # 0.01 10^3/uL 10^3/uL (0.00-0.10) PT 13.5 SEC SEC (12.0-15.0) INR 1.01 (0.83-1.16) APTT 34.2 SEC SEC (23.0-38.0) D-Dimer 0.31 ug/mLFEU ug/mLFEU (0.00-0.50) Sodium 142 mEq/L mEq/L (135-145) Potassium 4.6 mEq/L mEq/L (3.5-5.2) Chloride 106 mEq/L mEq/L (97-110) Carbon Dioxide 27 mEq/l mEq/l (22-31) Anion Gap 9 mEq/L mEq/L (8-16) BUN 17 mg/dL mg/dL (7-23) Creatinine 1.0 mg/dL mg/dL (0.7-1.3) Estimated GFR > 60 Glucose 97 mg/dL mg/dL (70-100) Calcium 9.4 mg/dL mg/dL (8.5-10.4) Creatine Kinase 98 IU/L IU/L (0-224) CK-MB (CK-2) Fraction 2.32 ng/mL ng/mL (0.00-3.19) Troponin I 0.072 ng/mL H ng/mL (0.000-0.034) Medications Given: Discontinued Medications Sodium Chloride (Ns) 500 mls @ 1,000 mls/hr IV EDNOW ONE PRN Reason: Protocol Stop: 11/30/17 19:38 Last Admin: 11/30/17 19:24 Dose: 500 mls Departure - Departure Disposition: Home, Routine, Self-Care Clinical Impression: Pre-syncope Condition: Good Instructions: Near Syncope (ED) Additional Instructions: 1. I do recommend increasing your fluid intake as mild dehydration may have contributed to your symptoms today. 2. All testing in the emergency department demonstrates no obvious abnormality. 3. I do recommend following up with your senior editor as scheduled. 4. Return to the ED immediately for any recurrent symptoms of passing out, a sensation that you will pass out, chest pain, shortness of breath or other concerns. Referrals: Ananth Crespo MD [Medical Doctor] - As per Instructions
[2017-11-30 19:29] LABS: PLATELET COUNT 265 10^3/uL (150-400)
[2017-11-30 19:35] LABS: CREATINE KINASE 98 IU/L (0-224)
[2017-11-30 19:38] LABS: INR 1.01 (0.83-1.16); PROTIME(PATIENT) 13.5 SEC (12.0-15.0)
--- NOTE | 2017-11-30 19:42 | CPEKG ---
Heart Rate: 67 RR Interval: 896 P-R Interval: 244 QRSD Interval: 92 QT Interval: 416 QTC Interval: 439 P [place]: 49 QRS [place]: -42 T Wave [place]: 65 EKG Severity - ABNORMAL ECG - EKG Impression: SINUS RHYTHM EKG Impression: FIRST DEGREE AV BLOCK Electronically Signed By: Braden Lara 30-Nov-2017 20:55:20
[2017-11-30 21:01] VITALS: BP 154/86; PULSE 68; TEMP 98.2; O2SAT 96
== END 2017-11-30 21:01 | disposition home or self-care (01) ==
LOC: EDUNIT#
DX: R55 Syncope and collapse (principal); E86.9 Volume depletion, unspecified; I25.2 Old myocardial infarction; Z95.5 Presence of coronary angioplasty implant and graft; Z87.891 Personal history of nicotine dependence; Z79.82 Long term (current) use of aspirin

== ENCOUNTER 2018-01-12 08:52 | Observation (INO) | payer OTHER ==
[2018-01-12] MEDS ORDERED: ASPIRIN 81 MG CHEWABLE TAB PO ONE (08:55)
[2018-01-12] MEDS ORDERED: NS 250 ML IV ONE (08:55)
--- NOTE | 2018-01-12 09:01 | CPEKG ---
Heart Rate: 77 RR Interval: 779 P-R Interval: 248 QRSD Interval: 90 QT Interval: 388 QTC Interval: 440 P [place]: 70 QRS [place]: -49 T Wave [place]: 60 EKG Severity - ABNORMAL ECG - EKG Impression: SINUS RHYTHM EKG Impression: FIRST DEGREE AV BLOCK EKG Impression: LEFT AXIS DEVIATION EKG Impression: LOW VOLTAGE IN FRONTAL LEADS Electronically Signed By: Misti Bundy 12-Jan-2018 15:33:16
[2018-01-12 09:23] LABS: PLATELET COUNT 274 10^3/uL (150-400)
[2018-01-12 09:29] LABS: INR 1.09 (0.83-1.16); PROTIME(PATIENT) 14.3 SEC (12.0-15.0)
[2018-01-12 09:38] LABS: CREATINE KINASE 66 IU/L (0-224)
--- NOTE | 2018-01-12 09:57 | EDPHY ---
H & P Time Seen by Provider: 01/12/18 08:56 HPI/ROS: HPI Lightheaded comma chest pains. 77-year-old male by private vehicle with his . This patient has a history of coronary artery disease. 1 month ago he under went catheterization. He had 1 stent placed at that time and 3 or 4 angioplasties done. He reports that he was at home at 7:30 a.m.. He was standing by a kitchen counter. He reports that he started not feeling well. He describes this as feeling lightheaded, mildly sweaty and having tingling in his hands. He reports that he then developed left lower parasternal chest pain described as a deep ache. This lasted for about 30 sec to a minute then resolved for about 30 sec to a minute and then came back. He had several episodes like this. He took several aspirin prior to coming to the emergency department. He is feeling better now. He states that he felt a slightly irregular pulse at the time of his chest discomfort as well. ROS: Constitutional: No fever, no chills. As above. Eyes: No discharge. No changes in vision. ENT: No sore throat. No nasal congestion or rhinorrhea. Respiratory: No cough. No shortness of breath. Cardiac: As above. Gastrointestinal: No abdominal pain, no vomiting, no diarrhea. Genitourinary: No hematuria. No dysuria or increased frequency with urination. Musculoskeletal: No back pain. No neck pain. No myalgias or arthralgias. Skin: No rashes. Neurological: No headache. No focal weakness or altered sensation. Past medical history: Stable ascending aortic aneurysm 4 cm, hernia repair, right eye cataract, corneal surgery, right shoulder rotator cuff surgery, cervical diskectomy, as above. Medications include clopidogrel, Eliquis, and aspirin. Social history: Physical Exam: General Appearance: Alert, no distress. This patient is responding to questions appropriately and in full sentences. This patient appears well- hydrated and well-nourished. Eyes: Pupils equal and round no pallor or injection. No lid edema, erythema or injection. Respiratory: There are no retractions, lungs are clear to auscultation with good air movement bilaterally. Cardiovascular: Regular rate and rhythm. No murmur appreciated. Gastrointestinal: Abdomen is soft and nontender, no masses, bowel sounds normal. No focal tenderness at McBurney's point. No Arenas sign. Neurological: Motor sensory function is grossly intact. Cranial nerves are normal. Gait is normal. Skin: Warm and dry, no rashes. Musculoskeletal: Neck is supple and nontender. Extremities are symmetrical. All joints range without pain or impingement. Psychiatric: No agitation. No depression. Database: EKG: EKG time is 8:59 a.m.; EKG shows a narrow complex normal sinus rhythm with a ventricular rate of 77. 1st degree AV block noted. The QRS, QT intervals are within normal limits. Low voltage noted in the frontal leads. Left axis deviation. There are no ST-T wave changes indicative of ischemic or injury pattern. No evidence of right heart strain. Interpreted by me. Imaging: Chest x-ray AP portable; the cardiac mediastinal silhouette is unremarkable. No evidence of infiltrate or pneumothorax. No acute cardiopulmonary disease process noted. Interpreted by me. Procedures: Emergency department course: IV placed. Patient placed on a surveillance monitor. Vital signs reviewed. He is moderately hypertensive. Vital signs otherwise normal. 10:15 a.m., patient re-evaluated. Resting comfortably at this time. No chest pain. No shortness of breath. Vital signs reviewed. Blood pressure currently 133/78. Discussed emergency department workup and plan for admission. All questions were answered. Hospitalist paged. 10:20 a.m., spoke with hospitalist. Case discussed in detail. Patient accepted for admission. Patient admitted in stable and improved condition. Differential Diagnosis: The differential diagnosis on this patient includes but is not limited to acute coronary syndrome, medication reaction, vasovagal event, arrhythmia. This represents a partial list of diagnoses considered. These considerations are based on history, physical exam, past history, reassessment and diagnostic testing. Smoking Status: Former smoker Constitutional: Initial Vital Signs Temperature (C) 36.4 C 01/12/18 08:53 Heart Rate 75 01/12/18 08:53 Respiratory Rate 18 01/12/18 08:53 Blood Pressure 175/98 H 01/12/18 08:53 O2 Sat (%) 95 01/12/18 08:53 O2 Delivery Mode Nasal Cannula O2 (L/minute) 2 Allergies/Adverse Reactions: No Known Allergies Allergy (Verified 01/12/18 08:52) Home Medications: Medication Instructions Recorded Aspirin [Aspirin 81mg (*)] 81 mg PO DAILY 04/02/16 Cetirizine [ZyrTEC 10 mg (*)] 10 mg PO Q2D 04/02/16 Herbals/Supplements -Info Only 1 ea PO DAILY 04/02/16 Levothyroxine [Synthroid 88 mcg 88 mcg PO DAILY06 04/02/16 (*)] Apixaban [Eliquis] 5 mg PO BID 11/26/17 Escitalopram Oxalate [Lexapro 10 10 mg PO DAILY 11/26/17 MG] Clopidogrel Bisulfate [Plavix (*)] 75 mg PO DAILY #30 tab 11/29/17 Rosuvastatin Calcium [Crestor] 10 mg PO DAILY #30 tablet 11/29/17 Medical Decision Making - Diagnostics Imaging Results: Imaging Impressions Chest X-Ray 01/12/18 08:56 Impression: 1. No active cardiopulmonary disease seen.. - Data Points Laboratory Results: Laboratory Results 01/12/18 09:03 01/12/18 09:03 01/12/18 01/12/18 01/12/18 09:03 09:03 09:03 WBC 4.72 10^3/uL 10^3/uL (3.80-9.50) RBC 5.55 10^6/uL 10^6/uL (4.40-6.38) Hgb 16.8 g/dL g/dL (13.7-17.5) Hct 48.2 % % (40.0-51.0) MCV 86.8 fL fL (81.5-99.8) MCH 30.3 pg pg (27.9-34.1) MCHC 34.9 g/dL g/dL (32.4-36.7) RDW 12.6 % % (11.5-15.2) Plt Count 274 10^3/uL 10^3/uL (150-400) MPV 9.6 fL fL (8.7-11.7) Neut % (Auto) 68.3 % % (39.3-74.2) Lymph % (Auto) 18.0 % % (15.0-45.0) [place] % (Auto) 10.2 % % (4.5-13.0) Eos % (Auto) 2.3 % % (0.6-7.6) Baso % (Auto) 0.8 % % (0.3-1.7) Nucleat RBC Rel Count 0.0 % % (0.0-0.2) Absolute Neuts (auto) 3.22 10^3/uL 10^3/uL (1.70-6.50) Absolute Lymphs (auto) 0.85 10^3/uL L 10^3/uL (1.00-3.00) Absolute Monos (auto) 0.48 10^3/uL 10^3/uL (0.30-0.80) Absolute Eos (auto) 0.11 10^3/uL 10^3/uL (0.03-0.40) Absolute Basos (auto) 0.04 10^3/uL 10^3/uL (0.02-0.10) Absolute Nucleated RBC 0.00 10^3/uL 10^3/uL (0-0.01) Immature Gran % 0.4 % % (0.0-1.1) Immature Gran # 0.02 10^3/uL 10^3/uL (0.00-0.10) PT 14.3 SEC SEC (12.0-15.0) INR 1.09 (0.83-1.16) APTT 35.6 SEC SEC (23.0-38.0) Sodium 144 mEq/L mEq/L (135-145) Potassium 4.3 mEq/L mEq/L (3.5-5.2) Chloride 107 mEq/L mEq/L (97-110) Carbon Dioxide 23 mEq/l mEq/l (22-31) Anion Gap 14 mEq/L mEq/L (8-16) BUN 12 mg/dL mg/dL (7-23) Creatinine 0.9 mg/dL mg/dL (0.7-1.3) Estimated GFR > 60 Glucose 94 mg/dL mg/dL (70-100) Calcium 9.0 mg/dL mg/dL (8.5-10.4) Creatine Kinase 66 IU/L IU/L (0-224) CK-MB (CK-2) Fraction 1.62 ng/mL ng/mL (0.00-3.19) Troponin I < 0.012 ng/mL ng/mL (0.000-0.034) Medications Given: Discontinued Medications Aspirin (Aspirin) 324 mg PO EDNOW ONE Stop: 01/12/18 08:56 Last Admin: 01/12/18 09:13 Dose: Not Given Sodium Chloride (Ns) 250 mls @ 1,000 mls/hr IV EDNOW ONE PRN Reason: Protocol Stop: 01/12/18 09:09 Last Admin: 01/12/18 09:11 Dose: 250 mls Departure - Departure Disposition: [facility] Inpatient Acute Clinical Impression: Chest pain, Near syncope, History of coronary artery disease Referrals: Sanjay Obregon MD [Primary Care Provider] - As per Instructions
--- NOTE | 2018-01-12 11:18 | ASMTCMCOM ---
CM Note CM Note Notes: Pt presented to the Emergency Department near syncope with chest pain. History includes coronary artery disease, afib, hypothyroid, spinal stenosis and anxiety. Pt was hospitalized 11/27/17 with afib and chest pain, he is s/p stent placement. Pt to be admitted for further evaluation and treatment. Pt lives with his , independently. Per prior CM notes, pt's has a new Alzheimer's dementia diagnosis. Pt also has a son who is involved in his care. His son is a Architecture Technician. Discharge needs remain unclear at this time. CM will continue to follow. Current Discharge Plan: To be determined Date Signed: 01/12/2018 11:17 AM Electronically Signed By:Marilee Denton RN
[2018-01-12] MEDS ORDERED: ONDANSETRON 4 MG/2 ML VIAL IVP PRN (13:51)
[2018-01-12] MEDS ORDERED: ONDANSETRON DISINTEGRATING 4 MG TAB PO PRN (13:51)
[2018-01-12] MEDS ORDERED: ACETAMINOPHEN 325 MG TAB PO PRN (13:51)
[2018-01-12] MEDS ORDERED: Herbals/Supplements -Info Only PO SCH (14:00)
[2018-01-12] MEDS: LEVOTHYROXINE 88 MCG TAB PO SCH (15:17)
[2018-01-12] MEDS: CLOPIDOGREL BISULFATE 75 MG TAB PO SCH (15:17)
[2018-01-12] MEDS: ROSUVASTATIN CALCIUM 10 MG TAB PO SCH (15:17)
[2018-01-12] MEDS: ESCITALOPRAM OXALATE 10 MG TAB PO SCH (15:17)
--- NOTE | 2018-01-12 19:19 | PDGENHP ---
History and Physical - Chief Complaint Acute chest pain - History of Present Illness Primary care provider: Dr. Obregon Primary customer experience analyst: Dr. Ananth Crespo HPI: 69-year-old male presenting with acute chest pain located in the lower parasternal area, characterized as an aching sensation, associated with lightheadedness, sweatiness, shortness of breath, nausea, paresthesias located in his bilateral hands with onset of symptoms at 7:30 a.m. On the day of presentation. Duration of symptoms was approximately 20-30 seconds, and the symptoms recurred several times. The symptoms were somewhat alleviated by sitting down. He reports that his pulse felt irregular. The patient reports that the constellation of symptoms was very similar in character to those experienced on 11/30/2017 when the patient presented to the emergency department and had a negative evaluation at that time. The only significant difference between that time and this time, was the occurrence of chest pain, which is new for the patient. He otherwise reports no recent injury to the chest, reports that yesterday he had been feeling well, reports that he had not taken his medications on the morning of this presentation, and that he has not recently experienced any acutely stressful situations. History Information - Allergies/Home Medication List Allergies/Adverse Reactions: No Known Allergies Allergy (Verified 01/12/18 08:52) Home Medications: Aspirin [Aspirin 81mg (*)] 81 mg PO DAILY 04/02/16 [Last Taken 01/12/18 4 TABS] Cetirizine [ZyrTEC 10 mg (*)] 10 mg PO Q2D 04/02/16 [Last Taken 01/11/18] Herbals/Supplements -Info Only 1 ea PO DAILY 04/02/16 [Last Taken 11/26/17] Levothyroxine [Synthroid 88 mcg (*)] 88 mcg PO DAILY06 04/02/16 [Last Taken ] Apixaban [Eliquis] 5 mg PO BID 11/26/17 [Last Taken 01/11/18 21:00] Escitalopram Oxalate [Lexapro 10 MG] 10 mg PO DAILY 11/26/17 [Last Taken ] I have personally reviewed and updated: family history, medical history, social history, surgical history - Past Medical History atrial fibrillation (Paroxysmal, unclear when the diagnosis was made, unclear whether it is symptomatic or asymptomatic), coronary artery disease (With recent cardiac stent placement) Additional medical history: Tinnitus, hypothyroidism, anxiety disorder, spinal stenosis, ascending thoracic aortic aneurysm of 4 cm - Surgical History Additional surgical history: Cardiac stent in November of 2017, right knee surgery , cervical spine surgery, hernia surgery, orchiectomy, tonsillectomy, rotator cuff surgery - Family History Additional family history: Father with congestive heart failure at age 56, sister with ovarian and breast cancer, son with hypertrophic obstructive cardiomyopathy and cardiac transplant - Social History Smoking Status: Former smoker Alcohol Use: None Drug Use: None Additional social history: 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 Review of Systems Review of Systems: ROS: 10pt was reviewed & negative except for what was stated in HPI & below Cardiac: Reports: chest pain Respiratory: Reports: shortness of breath Gastrointestinal: Reports: nausea Neurological: Reports: paresthesia, other (Lightheadedness) Physical Exam Physical Exam: Temp Pulse Resp BP Pulse Ox 36.4 C 80 15 136/93 H 96 01/12/18 15:03 01/12/18 15:03 01/12/18 15:03 01/12/18 15:03 01/12/18 15:03 O2 (L/minute) 2 Constitutional: no apparent distress, appears nourished, not in pain Eyes: PERRL, anicteric sclera, EOMI Ears, Nose, Mouth, Throat: moist mucous membranes, hearing normal, ears appear normal, no oral mucosal ulcers Cardiovascular: regular rate and rhythym, no murmur, rub, or gallop, No edema Respiratory: no respiratory distress, no rales or rhonchi, clear to auscultation Gastrointestinal: normoactive bowel sounds, soft, non-tender abdomen, no palpable masses Skin: warm, No abrasion, No rash Neurologic: AAOx3, sensation intact bilaterally, No weakness Psychiatric: interacting appropriately, not anxious, not encephalopathic, thought process linear Lab Data & Imaging Review 01/12/18 09:03 01/12/18 09:03 WBC 4.72 10^3/uL (3.80-9.50) 01/12/18 09:03 RBC 5.55 10^6/uL (4.40-6.38) 01/12/18 09:03 Hgb 16.8 g/dL (13.7-17.5) 01/12/18 09:03 Hct 48.2 % (40.0-51.0) 01/12/18 09:03 MCV 86.8 fL (81.5-99.8) 01/12/18 09:03 MCH 30.3 pg (27.9-34.1) 01/12/18 09:03 MCHC 34.9 g/dL (32.4-36.7) 01/12/18 09:03 RDW 12.6 % (11.5-15.2) 01/12/18 09:03 Plt Count 274 10^3/uL (150-400) 01/12/18 09:03 MPV 9.6 fL (8.7-11.7) 01/12/18 09:03 Neut % (Auto) 68.3 % (39.3-74.2) 01/12/18 09:03 Lymph % (Auto) 18.0 % (15.0-45.0) 01/12/18 09:03 [place] % (Auto) 10.2 % (4.5-13.0) 01/12/18 09:03 Eos % (Auto) 2.3 % (0.6-7.6) 01/12/18 09:03 Baso % (Auto) 0.8 % (0.3-1.7) 01/12/18 09:03 Nucleat RBC Rel Count 0.0 % (0.0-0.2) 01/12/18 09:03 Absolute Neuts (auto) 3.22 10^3/uL (1.70-6.50) 01/12/18 09:03 Absolute Lymphs (auto) 0.85 10^3/uL (1.00-3.00) L 01/12/18 09:03 Absolute Monos (auto) 0.48 10^3/uL (0.30-0.80) 01/12/18 09:03 Absolute Eos (auto) 0.11 10^3/uL (0.03-0.40) 01/12/18 09:03 Absolute Basos (auto) 0.04 10^3/uL (0.02-0.10) 01/12/18 09:03 Absolute Nucleated RBC 0.00 10^3/uL (0-0.01) 01/12/18 09:03 Immature Gran % 0.4 % (0.0-1.1) 01/12/18 09:03 Immature Gran # 0.02 10^3/uL (0.00-0.10) 01/12/18 09:03 PT 14.3 SEC (12.0-15.0) 01/12/18 09:03 INR 1.09 (0.83-1.16) 01/12/18 09:03 APTT 35.6 SEC (23.0-38.0) 01/12/18 09:03 Sodium 144 mEq/L (135-145) 01/12/18 09:03 Potassium 4.3 mEq/L (3.5-5.2) 01/12/18 09:03 Chloride 107 mEq/L (97-110) 01/12/18 09:03 Carbon Dioxide 23 mEq/l (22-31) 01/12/18 09:03 Anion Gap 14 mEq/L (8-16) 01/12/18 09:03 BUN 12 mg/dL (7-23) 01/12/18 09:03 Creatinine 0.9 mg/dL (0.7-1.3) 01/12/18 09:03 Estimated GFR > 60 01/12/18 09:03 Glucose 94 mg/dL (70-100) 01/12/18 09:03 Calcium 9.0 mg/dL (8.5-10.4) 01/12/18 09:03 Creatine Kinase 66 IU/L (0-224) 01/12/18 09:03 CK-MB (CK-2) Fraction 1.62 ng/mL (0.00-3.19) 01/12/18 09:03 Troponin I < 0.012 ng/mL (0.000-0.034) 01/12/18 17:55 Visualized and Interpreted Chest x-ray results: Yes Chest X-Ray results: no infiltrate Visualized and Interpreted EKG results: Yes EKG Interpretation: Positive for: other (Normal sinus rhythm, first-degree AV block, Q-wave in lead 3 and AVF) Assessment & Plan Assessment: 77-year-old male presents with acute chest pain, lightheadedness, irregular pulse, concerning for cardiac arrhythmia in the setting of recent cardiac stent Plan: 1. Chest pain. Acute, new problem this provider, further workup indicated. Rule out acute coronary syndrome by cycling patient's cardiac enzyme, and monitor for signs of arrhythmia, of which this sounds very likely -monitor on telemetry -discussed with Dr. Ananth Crespo, cardiology consult appreciated, he and I both agree that if there is no event on telemetry, then extended outpatient event monitor would be indicated to correlate symptoms with cardiac rhythm as sounds highly probable that arrhythmia is generating his symptoms on this presentation as well as on 11/30/2017 2. Coronary artery disease. Chronic, reviewed outside records including discharge summary by Dr. Tracy Guzman from 11/29/2017, reports the patient received a stent to his mid LAD, PCI to his 1st diet, his ejection fraction was 60%, he is discharged on Eliquis, aspirin, Plavix, statin -continue aspirin Plavix and statin 3. Paroxysmal atrial fibrillation. Is unclear whether the patient has symptomatic AFib and is unclear when the patient's AFib was diagnosed, patient currently on any preet blocking or antiarrhythmic agents, but he is on systemic anticoagulation -continue Eliquis -will consider low-dose beta-chivo if patient demonstrates any evidence of RVR Diet. Regular Prophylaxis. Moderate risk patient, currently on Eliquis Code. Full per patient, his son is MD [employer]NOR Disposition. Anticipated discharge is 01/13, pending further workup of conditions outlined above.
[2018-01-12] MEDS: APIXABAN 5 MG TAB PO SCH (22:08)
[2018-01-13] MEDS: LEVOTHYROXINE 88 MCG TAB PO SCH (05:50)
[2018-01-13 07:47] VITALS: BP 107/67
[2018-01-13] MEDS: ESCITALOPRAM OXALATE 10 MG TAB PO SCH (08:29)
[2018-01-13] MEDS: ROSUVASTATIN CALCIUM 10 MG TAB PO SCH (08:29)
[2018-01-13] MEDS: APIXABAN 5 MG TAB PO SCH (08:29)
[2018-01-13] MEDS: CLOPIDOGREL BISULFATE 75 MG TAB PO SCH (08:29)
[2018-01-13] MEDS ORDERED: ASPIRIN 81 MG CHEWABLE TAB PO SCH (09:00)
--- NOTE | 2018-01-13 18:02 | GCON ---
[f rep st] CONSULTATION DATE OF CONSULTATION: 01/13/2018 CHIEF COMPLAINT: We have been asked by Dr. Sanchez to evaluate this patient with a chief complaint of presyncope and chest pain. HISTORY OF PRESENT ILLNESS: The patient is a 77-year-old gentleman with known coronary artery diseas e who presented to the emergency department on 01/12/2018, with symptoms of presyncope and chest pain . The patient was in his usual state of health until the day of admission, when he began to experien ce his symptoms. The patient reported the onset of a hot flushing sensation followed by an irregular beating of the heart and symptoms of presyncope. These episodes would last for approximately 20-30 seconds, and then resolve without intervention. The patient also noted more epigastric discomfort as sociated with the symptoms. The epigastric discomfort was described as a cramp sensation that would come on and release, come on and release. His symptoms were not associated with dipesh syncope. The patient does have a previous history of coronary artery disease. His previous anginal symptoms were discomfort going across the top of his chest and up into his neck. His previous angina was brought o n by exertion and relieved with rest. The patient denies anginal type symptoms since his interventio n on November 28, 2017. The patient has been active, going to cardiac rehab. There is no history of ort hopnea or PND. Patient does report recent stress taking care of his , who has short-term memory loss. The patient also reports a recent episode of food poisoning characterized by nausea, vomiting and diarrhea. PAST MEDICAL HISTORY: 1. Coronary artery disease. 2. Hyperlipidemia. 3. Thoracic aortic aneurysm measuring 4.0 cm. 4. Tinnitus. 5. Hypothyroidism. 6. Anxiety disorder. 7. Spinal stenosis. PAST SURGICAL HISTORY: 1. Status post right total knee arthroplasty. 2. Cervical spine surgery. 3. Herniorrhaphy. 4. Orchiectomy. 5. Tonsillectomy. 6. Status post rotator cuff repair. MEDICATIONS: 1. Aspirin. 2. Plavix. 3. Eliquis. 4. Crestor. 5. Synthroid. 6. Lexapro. 7. Zyrtec. ALLERGIES: No known drug allergies. SOCIAL HISTORY: Patient lives independently with his . He has a son who is a ditch tender. He does not smoke. He denies problems with alcohol. FAMILY HISTORY: Notable for a father with congestive heart failure at age 56, and a son who had a hy pertrophic obstructive cardiomyopathy and is status post cardiac transplant. REVIEW OF SYSTEMS: 10-point review of systems is negative, except as noted in HPI. PHYSICAL EXAMINATION: GENERAL: The patient is resting comfortably in bed. He does not appear to be in acute distress. VITAL SIGNS: Temperature afebrile. Pulse is 88, blood pressure 107/67, respira tory rate is 12, SaO2 is 97% on room air. HEENT: Normocephalic, atraumatic. Extraocular muscles in tact. NECK: No JVD. No bruits. LUNGS: Clear to auscultation bilaterally. CARDIOVASCULAR: Regul ar rate and rhythm. S1, S2. No murmurs, rubs, or gallops appreciated. ABDOMEN: Soft, nontender. No hepatosplenomegaly. Aorta could not be adequately palpated. SKIN: No evidence of rashes. EXTRE MITIES: No edema. NEUROLOGIC: Nonfocal. LABORATORY: White blood cell count is 4.72, hemoglobin is 16.8, hematocrit 48.2, platelet count is 2 74. Sodium 144, potassium 4.3, chloride 107, CO2 23, BUN 12, creatinine 0.9. Troponin within normal limits x2. INR is 1.09. Chest x-ray demonstrates no acute cardiopulmonary disease. EKG demonstrat es sinus rhythm with leftward axis, no acute ST or T-wave changes. ASSESSMENT AND PLAN: The patient is a 77-year-old gentleman with: 1. Epigastric pain. The patient presents with symptoms of epigastric pain. Epigastric pain is desc ribed as a crampy sensation that will come on, last a few seconds and then relax. The chest pain is not at all like his previous anginal symptom which was a tightness radiating across his chest and ext ending into his throat. His biomarkers are within normal limits. His electrocardiogram demonstrates no acute ST or T-wave changes. Suspect the patient's epigastric discomfort may be gastrointestinal related, especially in consideration with his recent food poisoning episode. 2. Presyncope. Patient reports an episode of presyncope characterized by hot flushing sensation ass ociated with an irregular beating of his heart and a crampy sensation in his epigastrium. It is cert ainly possible that this is a vagally mediated event related to some gastrointestinal distress; [place] er, the patient does have a history of paroxysmal atrial fibrillation, he does report symptoms of pal pitations with the event. It is also possible this is arrhythmic mediated. His electrocardiogram de monstrates no significant abnormalities. Telemetry monitoring demonstrates no significant arrhythmia s. We will arrange for outpatient event monitor to further evaluate his condition. /[id number]/MODL
--- NOTE | 2018-01-13 23:13 | PDDCSUM ---
Discharge Summary Discharge Summary: Date of admission: 01/12/18 Date of discharge: 01/13/18 Follow-up items: 1. Please place 30-day event monitor as outpatient Discharge diagnosis: 1. Acute near syncope 2. Chronic coronary artery disease 3. Paroxysmal Atrial Fibrillation Consultations: Cardiology Procedures: No events on tele monitoring Chief Complaint: Near syncope Subjective: Feeling well, no recurrence of symptoms, mild chest pain o/n Physical Exam: AAOx3, NAD, heart rhythm regular on exam w/o significant MRG Labs: Trop neg x 2, TSH 1.4 11/21/17 Hospital Course: Mr. Arreola presented w/ near syncope and central chest pain, and was ruled out for ACS w/ neg trop x 2 and no ischemic changes on EKG, given his hx of CAD. He was ruled out for arrhythmia w/ no events on tele, albeit he did not experience any recurrent symptoms during his hospitalization. He was seen by his air moving technician, Dr. Crespo, and he determined that it was unlikely that his chest pain was anginal, as it was clearly different in character than his anginal pain experienced a month ago prior to cath, and he had negative biomarkers. He recommended outpatient event monitor. Medications: Please see official discharge medication reconcilliation sheet in chart, no med changes. Instructions: Please get event monitor and follow-up with Dr. Crespo after resulted.
[2018-01-14] MEDS ORDERED: CETIRIZINE 10 MG TAB PO SCH (09:00)
== END 2018-01-13 11:48 | disposition home or self-care (01) ==
LOC: F2W 14:44
PROVIDERS: ADMIT Internal Medicine; ATTEND Internal Medicine
DX: R55 Syncope and collapse (principal); R07.9 Chest pain, unspecified; I25.10 Atherosclerotic heart disease of native coronary artery without angina pectoris; I48.0 Paroxysmal atrial fibrillation; E86.9 Volume depletion, unspecified; I71.2 Thoracic aortic aneurysm, without rupture; I44.0 Atrioventricular block, first degree; H93.19 Tinnitus, unspecified ear; E03.9 Hypothyroidism, unspecified; F41.9 Anxiety disorder, unspecified; M48.00 Spinal stenosis, site unspecified; Z79.01 Long term (current) use of anticoagulants; Z79.82 Long term (current) use of aspirin; Z87.891 Personal history of nicotine dependence; Z82.49 Family history of ischemic heart disease and other diseases of the circulatory system; Z96.651 Presence of right artificial knee joint; Z95.5 Presence of coronary angioplasty implant and graft
CPT/HCPCS: 71045; 93005; 99285; G0378

== ENCOUNTER → 2018-03-30 | Outpatient (CLI) | payer OTHER ==
[~2018-03-30] MED LIST: IOPAMIDOL (ISOVUE 370) 100 ML BTL IV ONE
== END ==
LOC: CIMAGING 08:46
PROVIDERS: ATTEND Internal Medicine Cardiovascular Disease
DX: I77.810 Thoracic aortic ectasia (principal); I25.10 Atherosclerotic heart disease of native coronary artery without angina pectoris; Z98.1 Arthrodesis status
CPT/HCPCS: 71275; Q9967; 36415-PO; 80076-PO; 82565-PO

== ENCOUNTER 2019-02-27 13:03 | Emergency (ER) | payer OTHER | END 2019-02-27 15:08 | disposition home or self-care (01) ==